=== PATIENT | female | born 1995 ===

== ENCOUNTER 2018-11-08 09:15 | Day surgery (SDC) | payer MEDICAID ==
--- NOTE | 2018-11-08 10:32 | Anesthesia Consultation ---
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 Takes prednisone for adrenal insufficiency, 4 mg per day. Last dose 11/08/18. - Central Nervous System Hx Seizures: Yes (with hypoglycemia) - Endocrine Hx Renal Disease: Yes (CKD) Hx Insulin Dependent Diabetes: Yes Hx Hypothyroidism: Yes (synthroid) - Hematic Hx Anemia: Yes
--- NOTE | 2018-11-08 10:33 | Anesthesia Consultation ---
Anesthesia Consult and Med Hx Date of service: 11/08/18 - Airway Anesthetic Teeth Evaluation: Good Mental/Hyoid Distance: Adequate Mallampati Class: Class II Intubation Access Assessment: Probably Good - Pulmonary Exam CTA: Yes - Cardiac Exam Cardiac Exam: RRR - Pre-Operative Health Status ASA Pre-Surgery Classification: ASA3 Proposed Anesthetic Plan: MAC - Additional Comments Anesthesia Medical History Comments: Polyglandular autoimmune disorder wihk chronic hypokalemia.
--- NOTE | 2018-11-08 10:33 | Anesthesia Day of Surgery ---
Anesthesia Day of Surgery - Day of Surgery Patient Examined: Yes Patient H&P Reviewed: Yes Patient is NPO: Yes
[2018-11-08] MEDS ORDERED: VERSED ONE (11:03)
[2018-11-08] MEDS ORDERED: DIPRIVAN 10 MG/ML IV ONE (11:03)
[2018-11-08] MEDS ORDERED: NACL 0.9% 1000 ML 1,000 ML IV SCH (12:00)
--- NOTE | 2018-11-08 12:15 | Procedure Note ---
Date of procedure: 11/08/18 Pre-op diagnosis: Dysphagia Post-op diagnosis: other (Small and narrowed esophagus/ Trauma to the proximal esophagus while trying to pass the adult EGD scope/ Normal mucosa of the rest of the esophagus,stomach and duodenumd and patent pylorus) Procedure: EGD (Pediatric EGD endoscope) Anesthesia: MAC Surgeon: LEANNA PRIETO Estimated blood loss: minimal Pathology: none Condition: stable Disposition: same day (Clear liquid diet. Avoid aspirin and NSAID for 5 days. Follow up in 1 to 2 weeks ([phone]). Possible esophagus dilation under flouroscopy in a Tertiary care center.)
--- NOTE | 2018-11-08 12:21 | Operative Report ---
DIAGNOSTIC EGD INDICATIONS: This is a 23-year-old female with an underlying history of Dilworth's disease, diabetes mellitus, renal insufficiency, who has very narrowed esophagus, which causes her to have dysphagia. She had a barium swallow study done, which showed very narrowed esophagus without significant stenosis. Initially, the EGD was attempted with adult pediatric scope with the hope that possibly balloon dilation could be used; however, when the attempt was made to pass the scope, it was not possible since the upper part of the esophagus was very narrowed and there was some trauma with attempt to pass the scope. The scope was then withdrawn and the pediatric scope was then put up and the pediatric scope was passed with ease into the upper esophagus where the trauma was noticed. Photodocumentation was obtained. The mid and distal esophagus showed normal mucosa. The stomach appeared normal in the straight and the retroverted view. The pylorus is patent. Duodenum in the first and second portion appeared normal. No biopsies were done. ASSESSMENT: Dysphagia secondary to narrowed esophagus, unable to pass the normal adult EGD scope. Subsequently, the pediatric scope was passed. There was trauma to the upper esophagus while attempting to pass the normal EGD scope. The mid and distal esophagus, stomach and duodenum. Duodenal mucosa appeared normal. No biopsies were done. There was some minimal bleeding from the trauma that was down to the upper esophagus. ASSESSMENT: Dysphagia secondary to very narrow esophagus, trauma to the upper esophagus while attempting to pass the normal adult EGD scope. Normal gastric and duodenal mucosa. PLAN: To have the patient avoid aspirin and aspirin-related products for the next few days. Keep the patient on a clear liquid diet and have the patient follow up in the office in 1-2 weeks' time or earlier if needed. The patient may require an esophageal dilation under fluoroscopy, JOB# [id number] ANTIONE/SHANTELLE
[2018-11-08 12:50] VITALS: BP 116/81
--- NOTE | 2018-11-08 12:54 | Post Anesthesia Evaluation ---
- Post Anesthesia Evaluation Patient Participated: Yes Airway Patent: Yes Stable Respiratory Function: Yes Temp > 96.8F: Yes Pain Manageable: Yes Adequeate Hydration: Yes Anesthesia Complications: No
== END 2018-11-08 09:16 | disposition home or self-care (01) ==
LOC: GIO 09:15
DX: K22.2 Esophageal obstruction (principal); R13.10 Dysphagia, unspecified; I12.9 Hypertensive chronic kidney disease with stage 1 through stage 4 chronic kidney disease, or unspecified chronic kidney disease; E11.22 Type 2 diabetes mellitus with diabetic chronic kidney disease; N18.3 Chronic kidney disease, stage 3 (moderate); E03.9 Hypothyroidism, unspecified; Z88.0 Allergy status to penicillin; Z79.899 Other long term (current) drug therapy; Z86.2 Personal history of diseases of the blood and blood-forming organs and certain disorders involving the immune mechanism; Z88.8 Allergy status to other drugs, medicaments and biological substances
CPT/HCPCS: 36415; 43235; 81025; 82962; 84132; J2250; J2704; J7030